=== PATIENT | female | born 1965 | race African-American/Black ===

== ENCOUNTER 2017-08-17 11:22 | Emergency (ER) | payer MEDICAID, OTHER ==
[~2017-08-17] VITALS: Ht 162.6 cm; Wt 67.1 kg
[~2017-08-17 11:22] MED LIST: ROBINUL1 MG PO
[2017-08-17] MEDS ORDERED: NKM (11:33)
[2017-08-17 11:46] VITALS: BP 122/73
--- NOTE | 2017-08-17 12:17 | Emergency Room Report ---
History of Present Illness General Chief Complaint: General Complaint Source: Patient Present Illness HPI 51-year-old female no significant past medical history presenting with left foot pain for 2 days. Patient denies any trauma however states that her left foot started to get swollen, worse with movement. No fever no chills no rash. Also states that there was some discharge coming from her left nipple the other day, no further discharge no redness Allergies: Coded Allergies: No Known Allergies (Unverified , 07/14/14) Patient History Past Medical History: see triage record Past Surgical History: none Pertinent Family History: none Last Menstrual Period: 07/30/2017 Reviewed Nursing Documentation: PMH: Agreed, PSxH: Agreed Nursing Documentation-PMH Past Medical History: No History, Except For Hx Hypertension: No Hx Pacemaker: No Hx Asthma: No Hx COPD: No Hx Diabetes: No Hx Cancer: No Hx Gastrointestinal Problems: No - FIBROIDS Hx Dialysis: No - SWEAT GLAND-ECTOMY Hx Neurological Problems: No Hx Cerebrovascular Accident: No Hx Seizures: No Review of Systems All Other Systems: negative except mentioned in HPI Physical Exam Vital Signs Date Time Temp Pulse Resp B/P (MAP) Pulse Ox O2 Delivery O2 Flow Rate FiO2 08/17/17 11:29 97.9 80 16 122/73 99 Room Air Sp02 EP Interpretation: reviewed, normal General Appearance: normal inspection, well appearing, no apparent distress, alert, GCS 15, non-toxic Head: normocephalic, atraumatic Eyes: bilateral eye normal inspection, bilateral eye PERRL, bilateral eye EOMI ENT: normal ENT inspection, normal pharynx, normal voice, moist mucus membranes Neck: normal inspection, full range of motion, supple Respiratory: normal inspection, lungs clear, normal breath sounds, no respiratory distress, no retraction, no wheezing, speaking full sentences, chest symmetrical Cardiovascular #1: normal inspection, regular rate, rhythm, normal capillary refill, other - L nipple no abnormalities, no discharge, no redness/mastitis Cardiovascular #2: 2+ radial (R), 2+ radial (L) Gastrointestinal: normal inspection, non tender, soft, non-distended, no guarding Musculoskeletal: other - +L foot with slight edema medial aspect , no 5th metatarsal tenderness, FROM Neurologic: normal inspection, alert, oriented x3, responsive, motor strength/ tone normal, sensory intact, normal gait, speech normal Psychiatric: normal inspection, judgement/insight normal, memory normal Skin: normal inspection, normal color, no rash, warm/dry, well hydrated, normal turgor Procedures Splinting Splinting : Consent: Verbal Location: L foot Pre-Made Type: LLUVIA wrap Pre-Proc Neuro Vasc Exam: normal Post-Proc Neuro Vasc Exam: normal Patient Tolerated: Well Complications: None Medical Decision Making Diagnostic Impression: Primary Impression: Left foot pain ER Course 51-year-old female with left foot pain for 2 days Also with "discharge" from left breast DDX: Sprain/strain vs. fracture There is no discharge from left nipple at this time, I am not concerned with mastitis, but does not appear to have any physical exam findings for an abscess Plan: Pain control with motrin XR ER course: Patient reports improvement of pain with motrin. XR reveals soft tissue swelling without fracture LLUVIA bandage applied. Disposition: Patient is to be discharged home with a prescription of motrin. Patient educated to rest, ice, and elevate extremity and to avoid vigorous activity. Strict precautions discussed with patient on when to return to the emergency room including increased redness or swelling joints, increased pain/swelling of extremity, fever or chills, which could indicate severe illness. Patient is to follow up with their primary care doctor within 5 days. Patient also instructed to follow up with an orthopedic doctor if continuing to have mild/moderate pain as he may need further outpatient imaging. Patient agrees with plan. Please note that this Emergency Department Report was dictated using [employer] maintenance technician technology software, occasionally this can lead to erroneous entry secondary to interpretation by the dictation equipment. Xray ordered: Left foot 3 view Indication: Pain EP Interpretation: Yes Interpretation: No dislocation, no soft tissue swelling, no fractures Impression: No acute disease Electronically signed by Celi Bashir MD Last Vital Signs Date Time Temp Pulse Resp B/P (MAP) Pulse Ox O2 Delivery O2 Flow Rate FiO2 08/17/17 11:46 97.9 16 122/73 99 Room Air 08/17/17 11:29 80 Disposition: HOME, SELF-CARE Condition: Improved Referrals: [facility],REFERR[facility] (PCP) Celi Bashir M.D. Aug 17, 2017 12:17
--- NOTE | 2017-08-17 12:38 | Diagnostic Imaging Report ---
Indication: Pain Technique: XRAY Foot Complete L Comparison: None Findings: There is no acute fracture or dislocation. Joint spaces and anatomic alignment appear preserved. There is a bipartite lateral hallux sesamoid versus remote lateral sesamoid fracture. No radiopaque foreign body seen. Impression: No acute fracture or dislocation. Bipartite lateral hallux sesamoid versus remote lateral sesamoid fracture.
[2017-08-17 12:52] VITALS: BP 123/72
== END 2017-08-17 12:55 | disposition home or self-care (01) ==
LOC: EMR 11:54
DX: M79.672 Pain in left foot (principal); N64.52 Nipple discharge; R60.0 Localized edema
CPT/HCPCS: 29540; 99283